=== PATIENT | male | born 1980 | race Caucasian/White ===

== ENCOUNTER 2020-08-29 21:21 | Emergency (ER) | payer BC ==
[2020-08-29 21:27] VITALS: BP 132/84; PULSE 72; TEMP 98.4; BMI 25.1
== END 2020-08-29 21:30 | disposition home or self-care (01) ==
LOC: JER 21:21
DX: Z11.52 Encounter for screening for COVID-19 (principal)
CPT/HCPCS: 99283-25; C9803; U0003; U0005

== ENCOUNTER → 2023-01-15 | Emergency (ER) | payer OTHER, BC ==
[2023-01-15 07:31] VITALS: BP 127/90; PULSE 93; RESP 18; TEMP 98.3; BMI 25.8
== END | disposition home or self-care (01) ==
LOC: JERFT 07:19
PROC: 0HQFXZZ Repair Right Hand Skin, External Approach (ICD-10-PCS; principal; 2023-01-15)
DX: S61.210A Laceration without foreign body of right index finger without damage to nail, initial encounter (principal); W31.82XA Contact with other commercial machinery, initial encounter; Y99.0 Civilian activity done for income or pay
CPT/HCPCS: 73140-TC-RT-FY; 99283-25

== ENCOUNTER 2024-03-09 13:09 | Emergency (ER) | payer OTHER ==
[2024-03-09 13:16] VITALS: BP 138/84; PULSE 87; RESP 18; TEMP 98.1; BMI 25.8
[2024-03-09] MEDS ORDERED: IBUPROFEN 600 MG TABLET (FP) PO ONE (14:33)
[2024-03-09] MEDS: IBUPROFEN 600 MG TABLET (FP) PO ONE (14:35)
== END 2024-03-09 14:44 | disposition home or self-care (01) ==
LOC: JERFT 13:09
DX: S80.912A Unspecified superficial injury of left knee, initial encounter (principal); X50.1XXA Overexertion from prolonged static or awkward postures, initial encounter
CPT/HCPCS: 73562-TC-LT-FY; 99283-25